=== PATIENT | female | born 1940 ===

== ENCOUNTER 2019-09-21 14:21 | Observation (INO) ==
[2019-09-21] MEDS ORDERED: *HR* HYDROcodone/Acet 5/325 mg TABLET PO ONE (14:37)
[2019-09-21] MEDS: Ondansetron ODT 4 MG TAB.RAPDIS SL ONE ×2 (14:53→14:54)
[2019-09-21] MEDS ORDERED: Morphine Sulfate 2 MG/ML SYRINGE IVP ONE (16:36)
[2019-09-21 21:03] LABS: Basophils % 0.3 %; Eosinophils # 0.5 K/mcL (0.0-0.6); Eosinophils % 7.5 %; Hematocrit 39.6 % (35.3-44.9); Hemoglobin 12.5 g/dL (11.5-15.4); Immature Granulocytes % 0.4 % (0-4); Lymphocytes # 1.3 K/mcL (0.6-4.6); Lymphocytes % 18.9 %; Mean Corpuscular HGB Conc 31.6 g/dL (31.6-35.5); Mean Corpuscular Hemoglobin 30.6 pg (28.0-33.3); Mean Corpuscular Volume 97.1 fL (83.0-100.0); Mean Platelet Volume 8.6 fL (9.4-12.4); Monocytes # 0.7 K/mcL (0.0-1.3); Monocytes % 9.2 %; Neutrophils # 4.5 K/mcL (1.6-8.9); Platelet Count 300 K/mcL (140-400); Red Blood Count 4.08 M/mcL (3.82-4.97); Segmented Neutrophils % 63.7 %; White Blood Count 7.1 K/mcL (4.3-11.1)
[2019-09-21 21:12] LABS: INR 1.1; Prothrombin Time 12.4 Seconds (9.4-12.1)
[2019-09-21 21:20] LABS: BUN/Creatinine Ratio 32 (6-26); Blood Urea Nitrogen 32 mg/dL (8-23); Calcium 8.9 mg/dL (8.6-10.3); Carbon Dioxide 31 mEq/L (23-29); Chloride 101 mEq/L (98-107); Glucose 98 mg/dL (70-105); Osmolality,Calculated 291 (280-300); Potassium 4.6 mEq/L (3.5-5.1); Sodium 137 mEq/L (136-145); eGFR For African Americans > 60 (> 60); eGFR For Non-African Americans 54 (> 60)
[2019-09-22] MEDS ORDERED: Naloxone 0.4 MG/ML INJ IVP PRN ×2 (01:51→01:56)
[2019-09-22] MEDS ORDERED: Albuterol 2.5 MG/3 ML NEBULIZER IH PRN (01:51)
[2019-09-22] MEDS ORDERED: 0.9 % Sodium Chloride 1,000 ML IVC SCH (02:00)
[2019-09-22 02:28] LABS: Basophils % 0.4 %; Eosinophils # 0.5 K/mcL (0.0-0.6); Eosinophils % 6.3 %; Hematocrit 42.1 % (35.3-44.9); Hemoglobin 12.9 g/dL (11.5-15.4); Immature Granulocytes % 0.4 % (0-4); Lymphocytes # 1.1 K/mcL (0.6-4.6); Lymphocytes % 13.7 %; Mean Corpuscular HGB Conc 30.6 g/dL (31.6-35.5); Mean Corpuscular Hemoglobin 30.8 pg (28.0-33.3); Mean Corpuscular Volume 100.5 fL (83.0-100.0); Mean Platelet Volume 8.2 fL (9.4-12.4); Monocytes # 0.7 K/mcL (0.0-1.3); Monocytes % 8.6 %; Neutrophils # 5.6 K/mcL (1.6-8.9); Platelet Count 292 K/mcL (140-400); Red Blood Count 4.19 M/mcL (3.82-4.97); Segmented Neutrophils % 70.6 %; White Blood Count 7.9 K/mcL (4.3-11.1)
[2019-09-22 02:49] LABS: Alanine Aminotransferase 26 Units/L (7-52); Albumin 3.9 g/dL (3.5-5.7); Albumin/Globulin Ratio 1.2 (1.1-2.2); Alkaline Phosphatase 147 Units/L (34-104); Aspartate Amino Transferase 19 Units/L (13-39); BUN/Creatinine Ratio 29 (6-26); Bilirubin,Total 0.6 mg/dL (0.3-1.0); Blood Urea Nitrogen 27 mg/dL (8-23); Calcium 9.4 mg/dL (8.6-10.3); Carbon Dioxide 33 mEq/L (23-29); Chloride 101 mEq/L (98-107); Globulin 3.2 g/dL (2.4-3.5); Glucose 105 mg/dL (70-105); Magnesium 2.6 mg/dL (1.6-2.6); Osmolality,Calculated 291 (280-300); Phosphorous 3.2 mg/dL (2.7-4.5); Potassium 4.6 mEq/L (3.5-5.1); Sodium 138 mEq/L (136-145); Total Protein 7.1 g/dL (6.4-8.9); eGFR For African Americans > 60 (> 60); eGFR For Non-African Americans 58 (> 60)
[2019-09-22] MEDS: Ipratropium/Albuterol Neb 3 ML IH SCH ×2 (04:23→07:52)
[2019-09-22 07:32] VITALS: BP 160/83
[2019-09-23] MEDS ORDERED: *HR* Heparin 5,000 UNIT/ML VIAL SQ SCH (06:00)
[2019-09-25 11:17] LABS: ANA IgG by ELISA DETECTED (None Detected)
[2019-09-26 23:35] LABS: ANA HEp-2 IgG IFA DETECTED (<1:80); Anti Nuclear Ab Pattern NUCLEAR DOT; Anti Nuclear Ab Pattern 2 HOMOGENEOUS
== END 2019-09-22 15:42 | disposition home health service (06) ==
LOC: EMEROOARM 14:21 → 3NENU 14:21 → SUATTDRO 22:22 → 3NENU 23:00
PROVIDERS: ADMIT Family Medicine; ATTEND Internal Medicine

== ENCOUNTER 2022-05-19 14:07 | Observation (INO) ==
[2022-05-19] MEDS ORDERED: Ipratropium/Albuterol Neb 3 ML IH ONE (14:32)
[2022-05-19] MEDS ORDERED: methylPREDNISolone 125 MG/2 ML VIAL IVP ONE (14:32)
[2022-05-19 15:03] LABS: Basophils % 0.2 %; Eosinophils # 0.1 K/mcL (0.0-0.6); Eosinophils % 0.7 %; Hemoglobin 10.9 g/dL (11.5-15.4); Immature Granulocytes % 0.8 % (0-4); Lymphocytes % 8.2 %; Mean Corpuscular HGB Conc 29.5 g/dL (31.6-35.5); Mean Corpuscular Volume 88.3 fL (83.0-100.0); Monocytes # 0.5 K/mcL (0.0-1.3); Monocytes % 4.6 %; Nucleated Red Blood Cells 0.2 /100 WBC (0); Platelet Count 293 K/mcL (140-400); Red Blood Count 4.19 M/mcL (3.82-4.97); Red Cell Distribution Width 18.3 % (11.5-14.5); Segmented Neutrophils % 85.5 %; White Blood Count 11.7 K/mcL (4.3-11.1)
[2022-05-19 15:28] LABS: Calcium 8.7 mg/dL (8.6-10.3); Potassium 5.3 mEq/L (3.5-5.1)
[2022-05-19 15:36] LABS: Troponin I 0.05 ng/mL (< 0.04)
[2022-05-19] MEDS ORDERED: Naloxone 0.4 MG/ML INJ IVP PRN (16:12)
[2022-05-19] MEDS ORDERED: Ondansetron 4 MG/2 ML VIAL IVP PRN (16:12)
[2022-05-19] MEDS ORDERED: Melatonin 3 MG TABLET PO PRN (16:12)
[2022-05-19] MEDS ORDERED: Acetaminophen 325 MG TABLET PO PRN (16:12)
[2022-05-19] MEDS ORDERED: Azithromycin 250 MG TABLET PO SCH (16:15)
[2022-05-19] MEDS ORDERED: Ringers Solution, Lactated 500 ML IVC ONE (16:30)
[2022-05-19] MEDS ORDERED: Ringers Solution, Lactated 1,000 ML IVC SCH (16:30)
[2022-05-19 19:23] LABS: Adenovirus Not Detected (Not Detect); Bordetella Pertussis Not Detected (Not Detect); Chlamydophila pneumoniae Not Detected (Not Detect); Coronavirus 229E Not Detected (Not Detect); Coronavirus HKU1 Not Detected (Not Detect); Coronavirus NL63 Not Detected (Not Detect); Coronavirus OC43 Not Detected (Not Detect); Human Metapneumovirus Not Detected (Not Detect); Human Rhinovirus/Enterovirus DETECTED (Not Detect); Influenza A Subtype 2009 H1 Not Detected (Not Detect); Influenza B Not Detected (Not Detect); Mycoplasma pneumoniae Not Detected (Not Detect); Parainfluenza Virus 1 Not Detected (Not Detect); Parainfluenza Virus 2 Not Detected (Not Detect); Parainfluenza Virus 3 Not Detected (Not Detect); Parainfluenza Virus 4 Not Detected (Not Detect); Respiratory Syncytial Virus Not Detected (Not Detect); SARS-CoV-2 Not Detected (Not Detect)
[2022-05-19 19:36] LABS: VBG HCO3 28 mEq/L (21-27); VBG PCO2 45 mmHg (41-51); VBG PO2 193 mmHg (25-50)
[2022-05-19] MEDS ORDERED: Ipratropium/Albuterol Neb 3 ML IH SCH (20:00)
[2022-05-19] MEDS: *HR* Heparin 5,000 UNIT/ML VIAL SQ SCH (20:05)
[2022-05-19] MEDS ORDERED: levoFLOXacin 750 MG TABLET PO ONE (21:00)
[2022-05-19] MEDS ORDERED: Budesonide/Formoterol 160/4.5 1 PUFF INH IH SCH (22:00)
[2022-05-19] MEDS: Levalbuterol Neb 1.25 MG/3 ML IH SCH (23:02)
[2022-05-20 02:01] LABS: Mean Platelet Volume 8.2 fL (9.4-12.4)
[2022-05-20 02:02] LABS: Hematocrit 34.2 % (35.3-44.9); Mean Corpuscular HGB Conc 29.2 g/dL (31.6-35.5); Mean Corpuscular Hemoglobin 26.2 pg (28.0-33.3); Mean Corpuscular Volume 89.8 fL (83.0-100.0); Platelet Count 281 K/mcL (140-400); Red Blood Count 3.81 M/mcL (3.82-4.97); Red Cell Distribution Width 18.1 % (11.5-14.5)
[2022-05-20 02:23] LABS: Calcium 8.5 mg/dL (8.6-10.3); Magnesium 2.6 mg/dL (1.6-2.6); Phosphorous 4.8 mg/dL (2.7-4.5); Potassium 5.7 mEq/L (3.5-5.1)
[2022-05-20 02:37] LABS: Troponin I 0.04 ng/mL (< 0.04)
[2022-05-20] MEDS: Levalbuterol Neb 1.25 MG/3 ML IH SCH (04:38)
[2022-05-20] MEDS ORDERED: Levalbuterol Neb 1.25 MG/3 ML IH PRN (04:52)
[2022-05-20] MEDS: *HR* Heparin 5,000 UNIT/ML VIAL SQ SCH (06:33)
[2022-05-20 07:09] VITALS: BP 117/81; PULSE 94; TEMP 97.9; O2SAT 100
[2022-05-20] MEDS ORDERED: predniSONE 20 MG TABLET PO SCH (09:00)
[2022-05-21] MEDS ORDERED: levoFLOXacin 500 MG TABLET PO SCH (20:00)
== END 2022-05-20 11:49 | disposition home health service (06) ==
LOC: 3BNU 14:07 → EMEROOARM 14:07 → SUATTDRO 16:56 → 3BNU 17:52
PROVIDERS: ADMIT Internal Medicine; ATTEND Internal Medicine